=== PATIENT | male | born 1970 | race Caucasian/White ===

== ENCOUNTER → 2021-02-28 | Outpatient (CLI) | payer BC ==
--- NOTE | 2021-02-28 17:23 | P.STRESS ---
- Stress Test Note Stress Test Results/Findings: Exam Performed: stress test Exam Date: 02/28/21 Reason for Exam: Shortness of Breath Height: 6 ft 4 in Weight: 220 kg Protocol: Karl Stage: 5 Duration of Exercise: 12:30 Resting Heart Rate: 80 Resting Blood Pressure: 132/79 Maximum Achieved Heart Rate: 169 Maximum Achieved Blood Pressure: 212/62 85% PMHR: 143 100% PMHR: 168 METS: 12.9 Technologist Comment: Stress Test Results/Findings: This is a 50-year-old gentleman with history of ischemic heart disease in the family being evaluated for symptoms of shortness of breath. Stress data: Baseline EKG showed sinus rhythm at all. NV interval, QRS duration. Blood pressure at rest is 130/79 with pulse rate of 80. Patient walked on the Karl protocol for about 4 minutes and 30 seconds achieving a maximal rate of 169 with blood pressure 118/63. EKGs taken during and after exercise did not reveal any change of ischemia. Patient did not experience any chest pain. Final impression #1. Negative stress test #2. patient did not expect any chest pain #3. Patient's exercise capacity is excellent. #4. No arrhythmias noted
--- NOTE | 2021-03-01 11:19 | EST ---
Stress Test Results/Findings: Exam Performed: stress test Exam Date: 02/28/21 Reason for Exam: Shortness of Breath Height: 6 ft 4 in Weight: 220 kg Protocol: Karl Stage: 5 Duration of Exercise: 12:30 Resting Heart Rate: 80 Resting Blood Pressure: 132/79 Maximum Achieved Heart Rate: 169 Maximum Achieved Blood Pressure: 212/62 85% PMHR: 143 100% PMHR: 168 METS: 12.9 Technologist Comment: Stress Test Results/Findings: This is a 50-year-old gentleman with history of ischemic heart disease in the family being evaluated for symptoms of shortness of breath. Stress data: Baseline EKG showed sinus rhythm at all. NJ interval, QRS duration. Blood pressure at rest is 130/79 with pulse rate of 80. Patient walked on the Karl protocol for about 4 minutes and 30 seconds achieving a maximal rate of 169 with blood pressure 118/63. EKGs taken during and after exercise did not reveal any change of ischemia. Patient did not experience any chest pain. Final impression #1. Negative stress test #2. patient did not experience any chest pain #3. Patient's exercise capacity is excellent. #4. No arrhythmias noted MTDD
== END | disposition home or self-care (01) ==
LOC: RADNMMAIN 08:43
PROVIDERS: ATTEND Family Medicine
DX: R07.89 Other chest pain (principal); R06.00 Dyspnea, unspecified
CPT/HCPCS: 93017

== ENCOUNTER → 2024-12-11 | Outpatient (CLI) | payer BC ==
[2024-12-11 14:08] LABS: Basophils # (A) 0.07 X 10*3/uL (0.00-0.10); Basophils % (A) 1.1 %; Eosinophils # (A) 0.17 X 10*3/uL (0.04-0.35); Eosinophils % (A) 2.6 %; HCT 50.6 % (39.6-50.0); HGB 16.2 g/dL (13.0-17.0); Lymphocytes # (A) 1.41 X 10*3/uL (0.90-5.00); Lymphocytes % (A) 21.9 %; MCH 28.9 pg (27.0-32.0); MCV 90.2 FL (80.0-97.0); Mean Platelet Volume 9.4 FL (9.5-12.2); Monocytes # (A) 0.35 X 10*3/uL (0.20-1.00); Monocytes % (A) 5.4 %; NRBC Per 100 WBC 0 X 10*3/uL (0.00-0.01); Neutrophils # (A) 4.43 X 10*3/uL (1.80-7.70); Neutrophils % (A) 68.7 %; Platelet Count 299 X 10*3/uL (140-440); RBC 5.61 X 10*6/uL (4.40-5.60); RDW 13.2 % (11.5-14.5); WBC 6.45 X 10*3/uL (4.50-10.00)
[2024-12-11 14:11] LABS: ALT 28 U/L (10-49); AST 19 U/L (14-35); Albumin 4.2 g/dL (3.8-4.9); Alkaline Phosphatase 71 U/L (41-126); Blood Urea Nitrogen 10.5 mg/dL (9.0-27.0); Calcium 9.6 mg/dL (8.7-10.3); Chloride 104 mmol/L (96-109); Chol/HDL Ratio 4.14 Ratio; Globulin 2.1 g/dL (1.6-3.3); Glucose 101 mg/dL (70-110); LDL Cholesterol,Calculated 129.7 mg/dL (0.0-131.0); Potassium 4.4 mmol/L (3.5-5.5); Prostate Specific Antigen 0.76 ng/mL (0.000-3.500); Sodium 141 mmol/L (135-145); Total Bilirubin 0.5 mg/dL (0.3-1.2); Total Protein 6.3 g/dL (6.2-8.2); VLDL Calculation 18.86 mg/dL (5.00-40.00)
== END | disposition home or self-care (01) ==
LOC: LABWHC1 08:11
PROVIDERS: ATTEND Internal Medicine
DX: Z00.00 Encounter for general adult medical examination without abnormal findings (principal); Z11.59 Encounter for screening for other viral diseases; Z12.5 Encounter for screening for malignant neoplasm of prostate; E55.9 Vitamin D deficiency, unspecified
CPT/HCPCS: 36415; 80053; 80061; 82306; 84153; 84443; 85025; 86803

== ENCOUNTER → 2024-12-21 | Outpatient (CLI) | payer BC ==
--- NOTE | 2024-12-21 15:40 | US ---
EXAMINATION TYPE: US thyroid st tissue head/neck DATE OF EXAM: 12/21/2024 COMPARISON: NONE CLINICAL INDICATION: Male, 54 years old with history of E04.9 THYROID ENLARGED; TECHNIQUE: Grayscale and color Doppler imaging of the thyroid gland. FINDINGS: GLAND SIZE: Right Lobe: 5.2 x 1.5 x 1.8 cm Overall Parenchyma: heterogeneous Left Lobe: 9.1 x 4.3 x 4.3 cm, enlarged Overall Parenchyma: heterogeneous Isthmus Thickness: 0.2 cm NODULES RIGHT: # of nodules measured on right: 1 larger nodule described below, multiple small subcentimeter nodules 1. 2.0 X 0.8 x 1.8 cm, lower mid, Prior size: no previous TIRADS Score: 3 TIRADS Category 3: Composition: Solid or almost completely solid (2 points). Echogenicity: Hyperechoic or isoechoic (1 point). Shape: Wider than tall (0 points). Margin: Ill-defined (0 points). Echogenic foci: None or large comet-tail artifacts (0 points) Recommendation: If >2.5cm: FNA; If >1.5cm: Follow up at 1,3,5 years LEFT: Enlarged diffusely heterogeneous with dominant thyroid nodule taking a majority of the gland. It lori ures at least 9.0 x 4.3 cm TIRADS Score: 3 TIRADS Category 3: Composition: Solid or almost completely solid (2 points). Echogenicity: Hyperechoic or isoechoic (1 point). Shape: Wider than tall (0 points). Margin: Smooth (0 points). Echogenic foci: None or large comet-tail artifacts (0 points) Recommendation: If >2.5cm: FNA; If >1.5cm: Follow up at 1,3,5 years ISTHMUS: # of nodules measured in the isthmus: 0 Bilateral neck scanned, no evidence of lymphadenopathy. IMPRESSION: Large left thyroid nodule which takes up the majority left thyroid gland. This is most compatible wit h multinodular goiter and meets criteria for biopsy if not tolerated performed. Highest TI-RADS level nodule reported: 2017 ACR TI-RADS LEVEL: TI-RADS 3 - Mildly Suspicious: Follow if > 1.5 cm, FNA if > 2.5 cm TI-RADS assessment score and recommendation for follow-up based on appropriate scoring and treatment protocols. TR3: If nodule size is ? 2.5 cm, FNA is recommended. If nodule size is ? 1.5 cm, follow-up imaging at 1, 3, and 5 years is recommended. TR4: If nodule size is ? 1.5 cm, FNA is recommended. If nodule size is ? 1.0 cm, follow-up imaging at 1, 2, 3, and 5 years is recommended. TR5: If nodule size is ? 1.0 cm, FNA is recommended. If nodule size is ? 0.5 cm, annual follow-up for up to 5 years is recommended. [email or web address] [facility], , 12/21/2024 3:38 PM
== END | disposition home or self-care (01) ==
LOC: RADUSWWP 15:07
PROVIDERS: ATTEND Internal Medicine
DX: E04.1 Nontoxic single thyroid nodule (principal)
CPT/HCPCS: 76536

== ENCOUNTER 2025-01-11 08:19 | Day surgery (SDC) | payer BC ==
[2025-01-11 09:04] VITALS: RESP 16; TEMP 98
[2025-01-11 09:54] VITALS: BP 123/75; PULSE 80
--- NOTE | 2025-01-11 11:44 | US ---
CLINICAL INDICATION: Male 54 years old with a history of E04.2 NONTOXIC MULTINODULAR GOITER. COMPARISON: Ultrasound thyroid study from December 21, 2024. PROCEDURE: ULTRASOUND-GUIDED THYROID LEFTNODULE FNA Pre-procedure diagnosis: Ti-Rads 3 Post-procedure diagnosis: Same. Anesthesia: Locally anesthetized with 1% lidocaine. Physician: Exam was performed by Dr Yusuf EBL: Minimal. Specimens: 5 FNA aspirates given to the director money Condition: Stable. Unanticipated events: None. Procedure Description: Informed consent was obtained. Patient was brought to the ultrasound procedure suite and placed supi ne upon the table with neck extended. Multiple grayscale images and real-time imaging was obtained of the thyroid gland. Left thyroid lobe redemonstrates a large family solid isoechoic left thyroid nodu le fine majority of the left thyroid gland measuring around 9.0 cm long axis. The skin over the procedure site was marked, prepped, and draped in usual sterile fashion. Then a ti meout was then performed. The site was then locally anesthetized with 1% lidocaine. Under direct ult rasound guidance the needle was then localized to this lesion. A total of 5 25-gauge FNA samples were obtained from the lesion. Samples were sent to the lab for further evaluation. After the samples were obtained, hemostasis achieved at the site by manual compression. A sterile Ba nd-Aid was placed. Patient tolerated the procedure well with no immediate complication. Patient was subsequently discharged home. IMPRESSION: Successful ultrasound guided FNA with samples sent to pathology for further analysis. High index of suspicion noted at time of procedure. [facility], , 01/11/2025 11:42 AM
== END 2025-01-11 09:45 | disposition home or self-care (01) ==
LOC: RADPROMAIN 08:19
PROVIDERS: ATTEND Internal Medicine
DX: E04.1 Nontoxic single thyroid nodule (principal)
CPT/HCPCS: 10005; 88173; 88305